=== PATIENT | female | born 1960 | race Caucasian/White ===

== ENCOUNTER 2024-04-12 06:16 | Emergency (ER) | payer BC ==
[~2024-04-12] VITALS: Ht 162.6 cm; Wt 62.6 kg
[2024-04-12] MEDS ORDERED: Erythromycin 0.5% Opth Oint 1 gm BOTHEYES ONE (07:20)
[2024-04-12] MEDS ORDERED: ERYT.5TO BOTHEYES (07:27)
== END 2024-04-12 07:32 | disposition home or self-care (01) ==
LOC: ER 06:16
DX: H10.213 Acute toxic conjunctivitis, bilateral (principal)
CPT/HCPCS: 99282; A9270